=== PATIENT | female | born 1940 | race Caucasian/White ===

== ENCOUNTER 2017-05-01 16:17 | Inpatient (IN) | payer MEDICARE, OTHER ==
[2017-05-01] VITALS: BP 148/71
[~2017-05-01] VITALS: Ht 162.6 cm; Wt 63.9 kg
--- NOTE | ~2017-05-01 | HEMODYNAMI ---
PATIENT:ALICIA SRIVASTAVA MEDICAL RECORD: [id number] : 36 LOCATION:[place] [address] ADMISSION DATE: 05/01/17 Generatedon:05/04/20178:57 Patient name: ALICIA SRIVASTAVA Patient #: [id number] SSN: : 1940 Date of study: 05/04/2017 Page: Of Hemodynamic Procedure Report Patient Data Patient Demographics Procedure consent was obtained First Name: ALICIA Gender: Female Last Name: ATIF : 1940 Middle Initial: D Age: 76 year(s) Patient #: [id number] Race: Unknown Additional ID: [id number] Contact details [address]: [address] [place] [address] State: [place] City: [place] Zip code: [address] Admission Admission Data Admission Date: 05/01/2017 Admission Time: 23:36 Room #: [facility]5 Weight (lbs.): 136.69 Weight (kg.): 62 Procedure Procedure Types Cath Procedure Diagnostic Procedure PPM/ICD PPM Ventricular Implant Miscellaneous Procedures Moderate Sedation up to 30 minutes Procedure Description Procedure Date Procedure Date: 05/04/2017 Procedure Start Time: 8:23 Procedure Staff Name Function Jaron Sawyer MD Performing Physician Brady Yu RN Nurse Jennifer Luna RT Monitor Steven Ji RT Scrub Betty Martell RN Nurse Procedure Data Cath Procedure Fluoroscopy Diagnostic fluoroscopy Total fluoroscopy Time: 2.6 time: 2.6 min min Diagnostic fluoroscopy Total fluoroscopy dose: dose: 20.68 mGy 20.68 mGy Contrast Material Contrast Material Type Amount (ml) Visipaque 270 10 Estimated blood loss: 5 ml Procedure Complications No complications Procedure Medications Medication Administration Route Dosage 0.9% NaCl I.V. 100 ml/hr Oxygen NC 2 l/min Lidocaine 1% added to field 20 Ancef (1Gm/50ml NS) I.V.P.B 1 g Ancef Irrigation Topical 1 g (1gm/500ml NS) Versed I.V. 1 mg Versed I.V. 1 mg Fentanyl I.V. 50 mcg Lopressor I.V. 5 mg Lopressor I.V. 5 mg Hemodynamics Rest Heart Rate: 111 (bpm) Snapshots Pre Cath Intra NCS Post Cath Vital Signs Time Heart Resp SPO2 etCO2 NIBP (mmHg) Rhythm Pain Sedation Rate (ipm) (%) (mmHg) Status Level (bpm) 7:58:45 109 22 92 0 183/108(149) NSR 0 (11) 10(A) , No pain 8:03:16 97 24 90 29.2 175/122(152) NSR 0 (11) 10(A) , No pain 8:07:46 60 27 92 29.1 171/114(131) NSR 0 (11) 10(A) , No pain 8:12:18 102 12 93 29.9 169/113(152) NSR 0 (11) 10(A) , No pain 8:16:49 110 23 93 29.9 169/120(145) NSR 0 (11) 10(A) , No pain 8:21:15 76 25 93 28.4 177/122(141) NSR 0 (11) 10(A) , No pain 8:25:49 122 14 93 32.9 170/124(141) NSR 0 (11) 10(A) , No pain 8:30:16 83 19 93 36.7 177/110(145) NSR 0 (11) 10(A) , No pain 8:34:42 95 17 93 36.7 167/111(136) NSR 0 (11) 10(A) , No pain 8:39:08 75 17 95 34.4 153/113(130) NSR 0 (11) 10(A) , No pain 8:43:30 106 17 94 35.2 157/107(137) NSR 0 (11) 10(A) , No pain 8:47:55 90 17 94 34.4 157/103(142) NSR 0 (11) 10(A) , No pain 8:52:19 114 19 94 32.9 160/109(129) NSR 0 (11) 10(A) , No pain Medications Time Medication Route Dose Verified Delivered Reason Notes Effective ness by by 8:09:35 0.9% NaCl I.V. 100 Jaron Abreu used for ml/hr Digna Yu RN procedure 8:09:46 Oxygen NC 2 Jaron Buffie Per l/min Digna Yu RN physician 8:10:26 Lidocaine added 20ml Jaron Jaron for local 1% to vial Digna Sawyer MD anesthetic field x2 8:10:57 Ancef I.V.P.B 1 g Jaron Buffie Per (1Gm/50ml Digna Yu RN protocol NS) 8:11:18 Ancef Topical 1 g Jaron Jaron Per Irrigation Digna Sawyer MD physician (1gm/500ml NS) 8:19:36 Versed I.V. 1 mg Jaron Buffie for Digna Yu RN sedation 8:24:01 Versed I.V. 1 mg Jaron Buffie for Digna Yu RN sedation 8:24:07 Fentanyl I.V. 50 Jaron Buffie for mcg Digna Yu RN sedation 8:39:50 Lopressor I.V. 5 mg Jaron Buffie Per Digna major MD 8:48:04 Lopressor I.V. 5 mg Jaron Buffie Per Digna major MD Procedure Log Time Note 7:29:52 Patient Weight : 136.69 lbs 7:34:19 Brady Yu RN sent for patient. Start room use. 7:41:35 Time tracking: Regular hours 7:41:39 Plan of Care:Hemodynamics will remain stable., Cardiac rhythm will remain stable., Comfort level will be maintained., Respiratory function will remain adequate., Patient/ family verbilizes understanding of procedure., Procedure tolerated without complication., Recovers from procedure without complications.. 7:51:16 Patient received from PCU to CCL 3 Alert and oriented. Tansferred to table in Supine position. 7:51:17 Warm blankets applied, and joelle hugger turned on for patient comfort. 7:51:18 Correct patient and procedure confirmed by team. 7:51:19 Signed procedure consent form obtained from patient. 7:51:20 ECG and BP/O2 sat monitors applied to patient. 7:51:21 Full Disclosure recording started 7:57:24 Vital chart was started 7:57:28 Rhythm: atrial fibrillation 7:58:00 H&P Date Dictated: 05/02/2017 Within 30 days and on chart.. 7:58:02 Pre-procedure instructions explained to patient. 7:58:02 Pre-op teaching completed and patient verbalized understanding. 7:58:04 Family in patients room. 7:58:06 Patient NPO since Midnight. 7:58:08 Is the patient allergic to Iodine/contrast media? No. 7:58:11 Is patient on blood thinner?No 8:00:57 Patient diabetic? No. 8:01:06 Previous problem with sedation/anesthesia? No ? 8:01:07 Snore? Yes 8:01:08 Sleep apnea? No 8:01:09 Deviated septum? No 8:01:10 Opens mouth fully? Yes 8:01:11 Sticks out tongue? Yes 8:01:13 Airway obstruction? No ? 8:01:41 Dentures? No ? 8:01:47 Patient pain scale 0/10 ?. 8:01:56 IV patent on arrival in left hand with 0.9% NaCl at KVO. 8:02:16 IV started by Brady Yu RN inleft antecubital with a 20 gauge IV catheter with 0.9% NaCl at KVO. 8:02:27 Lab results completed and on chart. 8:02:33 Left chest area was prepped with chlora-prep and draped in sterile fashion 8:02:34 Alarms reviewed by R. N. 8:02:35 Sharps counted by scrub and verified by R.N. 8:02:40 Use device set NORRED PPM 8:02:53 Tegaderm 4 x 4 (1626W) opened to sterile field. 8:02:53 Stapler Skin 35W Proximate Plus (PMW35) opened to sterile field. 8:02:55 Cautery Tip Audit Spec opened to sterile field. 8:02:55 Cautery Pushbutton Pencil opened to sterile field. 8:02:56 2.0 Silk 685H opened to sterile field. 8:02:57 2-0 Vicryl Plus [id number] opened to sterile field. 8:03:04 Medtronic 4074-52 PPM Lead opened to sterile field. 8:07:06 MICROPUNCTURE 4FR Carl ([id number]) opened to sterile field. 8:09:35 0.9% NaCl 100 ml/hr I.V. was administered by Brady Yu RN; used for procedure; 8:09:46 Oxygen 2 l/min NC was administered by Brady Yu RN; Per physician; 8:10:01 Medtronic medical field representative Joe Kaur present for procedure. 8:10:14 Pre sharps counted by scrub and verified by RN: Sutures: 2 Sponges: 5 Stick needles: 2 Skin needles: 2 Blade: 1 Cautery: 1 8:10:16 Grounding pad site Right thigh. 8:10:18 Grounding pad site free from injury. 8:10:26 Lidocaine 1% 20ml vial x2 added to field was administered by Jaron Sawyer MD; for local anesthetic; 8:10:57 Ancef (1Gm/50ml NS) 1 g I.V.P.B was administered by Brady Yu RN; Per protocol; 8:11:18 Ancef Irrigation (1gm/500ml NS) 1 g Topical was administered by Jaron Sawyer MD; Per physician; 8:12:14 Final Timeout: patient, procedure, and site verified with staff and physician. All members of the team are in agreement. 8:12:19 Left chest site verified by team. 8:12:22 Physical assessment completed. ASA score P 2 - A patient with mild systemic disease as per Jaron Sawyer MD. 8:12:24 Sedation plan: IV Moderate Sedation Medication:Versed, Fentanyl 8:19:36 Versed 1 mg I.V. was administered by Brady Yu RN; for sedation; 8:23:45 Lidocaine 1% was administered to left subclavicular area by Jaron Sawyer MD . 8:23:47 Baseline sample Acquired. 8:24:01 Versed 1 mg I.V. was administered by Brady Yu RN; for sedation; 8:24:07 Fentanyl 50 mcg I.V. was administered by Brady Yu RN; for sedation; 8:26:51 Incision made to left subclavicular area. 8:27:29 Generator pocket made/opened. 8:31:43 Access obtained with 4Fr micropunture. 8:35:13 MICROPUNCTURE 4FR YABUY ([id number]) opened to sterile field. 8:35:14 MICROPUNCTURE 4FR YABUY ([id number]) opened to sterile field. 8:37:52 Left subclavian vein accessed with 7Fr Peel Away Sheath. 8:37:53 Ventricular lead inserted and advanced. 8:37:58 Peel-a-way sheath was split and removed. 8:38:01 Ventricular lead positioned. 8:38:32 Ventricular lead tested. 8:39:50 Lopressor 5 mg I.V. was administered by Brady Yu RN; Per physician; 8:41:31 Ventricular lead attachment was completed with 2-0 silk. 8:41:39 PPM Single was attached to lead(s) and inserted into pocket. 8:41:58 Medtronic Adapta PPM Single Generator ADSR01 opened to sterile field. 8:44:44 Subcutaneous closure was completed with 2-0 vicryl. 8:44:57 Skin closure was completed with 35mm Rey. 8:45:21 Parameters-- Generator: Mode: VVIR. Lower Rate: 100bpm. Upper Rate: N/Abpm. 8:46:06 Parameters--Ventricular P/R Wave: 28.7mV. Current: 0.4mA; Threshold: 0.5V; Impedence: 1564OHMS. 8:46:26 Contrast amount:Visipaque 270 10ml. 8:48:04 Lopressor 5 mg I.V. was administered by Brady Yu RN; Per physician; 8:48:40 Lt Chest incision was dressed with 4 x 4 and Tegaderm. 8:48:52 Procedure ended.(Physican Out) 8:49:31 Fluoroscopy time 02.60 minutes. 8:49:53 Fluoroscopy dose: 20.68 mGy 8:49:53 Flurop Dose total: 20.68 8:49:57 Sharps counted by scrub and verified by R.N. 8:50:13 Post sharps counted by scrub and verified by RN: Sutures: 2 Sponges: 5 Stick needles: 2 Skin needles: 2 Blade: 1 Cautery: 1 8:50:16 Insertion/operative site no bleeding no hematoma. 8:50:23 Post Chest area:stable, clean and dry 8:50:24 Post Procedure Pulses reassessed and unchanged 8:50:27 Post-procedure physical assessment completed. ASA score P 2 - A patient with mild systemic disease as per Jaron Sawyer MD. 8:50:31 Post procedure rhythm: unchanged. 8:50:34 Estimated blood loss: 5 ml 8:50:35 Post procedure instruction explained to patient.Patient verbalizes understanding. 8:50:35 Patient needs reinforcement of post procedure teaching. 8:50:42 Procedure type changed to Cath procedure, Diagnostic procedure, PPM/ICD, PPM Ventricular Implant, Miscellaneous Procedures, Moderate Sedation up to 30 minutes 8:50:47 Procedure Complication : No complications 8:50:49 See physician's report for complete and final results. 8:51:52 Procedure and supply charges have been captured, reviewed, submitted and are correct. 8:54:44 Vital chart was stopped 8:54:47 Report given to PCU. 8:54:54 Patient transfered to PCU with Bed. 8:55:03 End room use (Document Last) Device Usage Item Name Manufacture Quantity Catalog Hospital Part Current Minimal Lot# / Number Charge Number Stock Stock Serial# Code Tegaderm 4 x 3M 1 1626W [id number] 5 4 (1626W) Stapler Skin Unknown 1 PMW35 035833 842254 [id number] 5 35W Proximate Plus (PMW35) Cautery Tip Microtek 1 [id number] 904659 874137 [id number] 5 [employer] Cautery Microtek 1 [id number] 496993 36686 353582 5 [email or web address] Pencil 2.0 Silk 685H Ethicon 1 685H 239092 34833 266519 5 2-0 Vicryl Ethicon 1 KTZ673 579375 921549 993366 5 Plus [id number] Medtronic Medtronic 1 4074-52 298339 529113 5 SN 4074-52 PPM [id number] Lead Exp 2019-01-10 MICROPUNCTURE [facility] 3 [id number] 062328 049048 554497 5 4FR Cook ([id number]) Medtronic Medtronic 1 ADSR01 569232 309083 5 SN Adapta PPM [id number] Single Exp Generator 2018-08-09 ADSR01 Signature Audit [place] Stage Time Signature Unsigned Intra-Procedure 05/04/2017 Jennifer 8:57:46 AM Counts RT(R) Signatures Monitor : Jennifer Signature : Counts RT Date : Time : [facility] [address] [place] [address]
[2017-05-01 17:36] LABS: BASOPHILS 0.2 % (0-2); EOSINOPHILS 1.5 % (0-7); HEMATOCRIT 43.2 % (36.0-48.0); HEMOGLOBIN 14.7 g/dL (12-16); IMMATURE GRANULOCYTES 0.5 % (0-5); LYMPHOCYTES 27.2 % (15-50); MCH 30.2 pg (26.0-34.0); MCV 88.7 fL (80.0-100.0); MEAN PLATELET VOLUME 10.2 fL (7.4-10.4); MONOCYTES 6.9 % (2-11); NEUTROPHILS 63.7 % (40-80); PLATELET COUNT 134 10x3/uL (130-400); RBC 4.87 10x6/uL (4.00-5.40); WBC 12.5 10x3/uL (4.8-10.8)
[2017-05-01 17:55] LABS: INR 1.22 (0.85-1.17)
[2017-05-01 18:16] LABS: ALBUMIN 3.3 g/dL (3.4-5.0); ANION GAP 12.3 mmol/L (8-16); BILIRUBIN - TOTAL 0.41 mg/dL (0.2-1.3); CALCIUM 9.4 mg/dL (8.5-10.1); CARBON DIOXIDE 29.2 mmol/L (21.0-32.0); CREATININE - SERUM 0.8 mg/dL (0.6-1.3); POTASSIUM - SERUM 3.5 mmol/L (3.5-5.1); PROTEIN - SERUM 6.2 g/dL (6.4-8.2)
[2017-05-01 21:22] LABS: CKMB 1.1 U/L (0.0-3.6); MAGNESIUM - SERUM 1.7 mg/dL (1.8-2.4)
[2017-05-01 21:26] LABS: TROPONIN-I < 0.017 ng/mL (0.000-0.060)
[2017-05-01 22:56] LABS: APPEARANCE CLEAR (CLEAR); COLOR YELLOW (YELLOW)
[2017-05-01 22:57] LABS: BILIRUBIN NEGATIVE (NEGATIVE); GLUCOSE NEGATIVE (NEGATIVE); KETONE NEGATIVE (NEGATIVE); NITRITE NEGATIVE (NEGATIVE); PROTEIN NEGATIVE (NEGATIVE); UROBILINOGEN NORMAL (NORMAL)
[2017-05-01 22:58] LABS: BACTERIA FEW /hpf (NONE SEEN); RED CELLS - URINE OCC /hpf (0-5); WHITE CELLS - URINE 0-5 /hpf (0-5)
[2017-05-02] MEDS ORDERED: NICARDIPINE HCL30 MG PO (00:20)
[2017-05-02] MEDS ORDERED: TEMAZEPAM30 MG PO (00:21)
[2017-05-02] MEDS ORDERED: PROPAFENONE HC225 MG PO (00:21)
[2017-05-02] MEDS ORDERED: COZAAR50 MG PO (00:21)
[2017-05-02 00:46] VITALS: BMI 24.9
[2017-05-02] MEDS ORDERED: TOBREX5 ML LEFT EYE (01:08)
[2017-05-02] MEDS ORDERED: LOTEMAX 0.5% OPH5 ML LEFT EYE (01:09)
[2017-05-02 04:00] VITALS: BP 96/65
[2017-05-02 05:59] LABS: BASOPHILS 0.1 % (0-2); EOSINOPHILS 2.2 % (0-7); HEMATOCRIT 40.2 % (36.0-48.0); HEMOGLOBIN 13.7 g/dL (12-16); IMMATURE GRANULOCYTES 0.1 % (0-5); LYMPHOCYTES 29.2 % (15-50); MCH 30.4 pg (26.0-34.0); MCHC 34.1 g/dL (31.0-37.0); MCV 89.1 fL (80.0-100.0); MEAN PLATELET VOLUME 10.7 fL (7.4-10.4); NEUTROPHILS 61.4 % (40-80); RBC 4.51 10x6/uL (4.00-5.40)
[2017-05-02 06:08] LABS: PLATELET COUNT 297 10x3/uL (130-400)
[2017-05-02 06:16] VITALS: BP 138/67
[2017-05-02 06:35] LABS: CALC OSMOLALITY 279 mosm/kg (275-300); CALCIUM 8.9 mg/dL (8.5-10.1); CARBON DIOXIDE 28.2 mmol/L (21.0-32.0); CHLORIDE - SERUM 104 mmol/L (98-107); CKMB 0.6 U/L (0.0-3.6); CREATINE KINASE 27 UL (21-215); CREATININE - SERUM 0.9 mg/dL (0.6-1.3); GLUCOSE 112 mg/dL (74-106); SODIUM 141 mmol/L (136-145); THYROID STIMULATING HORMONE 1.13 uIU/mL (0.36-3.74); TROPONIN-I < 0.017 ng/mL (0.000-0.060); UREA NITROGEN 8 mg/dL (7-18); eGFR NON AFRICAN AMERICAN 64 mL/min (90-120)
[2017-05-02 07:41] VITALS: BP 126/72
--- NOTE | 2017-05-02 09:04 | NUR ---
RESTS IN BED WITH EYES CLOSED. CALL LIGHT IN REACH. WILL MONITOR NEEDS.
--- NOTE | 2017-05-02 09:40 | NUR ---
ASSESSMENT DONE. DEIES NEEDS.
--- NOTE | 2017-05-02 10:33 | NUR ---
RATIONALE FOR SCD'S EXPLAINED. REFUSED SCD'S
[2017-05-02 11:19] VITALS: BP 159/100
[2017-05-02 15:45] VITALS: BP 148/92
--- NOTE | 2017-05-02 17:34 | NUR ---
WITHOUT CHANGES OR DISTRESS NOTED AT THIS TIME. DENIES NEED.
[2017-05-02 20:23] VITALS: BP 132/80
--- NOTE | 2017-05-02 20:59 | NUR ---
HS MEDS GIVEN WITH FRESH ICE WATER, PT DENIES PAIN NEEDS.
--- NOTE | 2017-05-03 01:06 | NUR ---
PT IN BED RESTING QUIETLY. BREATHING EVEN AND UNLABORED. BED IN LOW POSITION, CALL LIGHT WITHIN REACH. WILL CTM.
[2017-05-03 01:50] VITALS: BP 163/97
--- NOTE | 2017-05-03 04:24 | NUR ---
RESTING WITH EYES CLOSED, RESPERATIONS EVEN, NO S/S DISTRESS NOTED.
[2017-05-03 05:01] LABS: BASOPHILS 0.1 % (0-2); EOSINOPHILS 1.8 % (0-7); HEMATOCRIT 38.6 % (36.0-48.0); HEMOGLOBIN 13.4 g/dL (12-16); IMMATURE GRANULOCYTES 0.3 % (0-5); LYMPHOCYTES 32.7 % (15-50); MCH 30.5 pg (26.0-34.0); MCHC 34.7 g/dL (31.0-37.0); MCV 87.9 fL (80.0-100.0); MEAN PLATELET VOLUME 10.1 fL (7.4-10.4); MONOCYTES 7.9 % (2-11); NEUTROPHILS 57.2 % (40-80); PLATELET COUNT 309 10x3/uL (130-400); RBC 4.39 10x6/uL (4.00-5.40); RDW 13.7 % (11.5-14.5); WBC 9.2 10x3/uL (4.8-10.8)
[2017-05-03 05:24] LABS: ANION GAP 6.2 mmol/L (8-16); CALCIUM 8.7 mg/dL (8.5-10.1); CARBON DIOXIDE 29.5 mmol/L (21.0-32.0); CREATININE - SERUM 0.8 mg/dL (0.6-1.3); MAGNESIUM - SERUM 1.4 mg/dL (1.8-2.4)
[2017-05-03 05:25] LABS: POTASSIUM - SERUM 2.7 mmol/L (3.5-5.1)
[2017-05-03 05:54] VITALS: BP 173/106
--- NOTE | 2017-05-03 06:00 | NUR ---
PAGE OUT TO HAVEN NAVARRO APN, YACHT BUILDER FOR DR GARCIA, TO REPORT A CRITICAL POTASSIUM LEVEL OF 2.7.
--- NOTE | 2017-05-03 06:10 | NUR ---
CONSENTS SIGNED FOR PACEMAKER PLACEMENT TO BE DONE TODAY.
--- NOTE | 2017-05-03 06:32 | NUR ---
POTASSIUM 40 MEQ GIVEN WITH SMALL SIPS OF WATER FOR POTASSIUM OF 2.7. WILL CONT TO MONITOR.
[2017-05-03 07:00] VITALS: BP 187/82
--- NOTE | 2017-05-03 07:11 | NUR ---
RECIEVED REPORT ONPATIENT, PATIENT IS ALERT AND ORIENTED AT THIS TIME. PATIENT HAS A L FA IV WITH NS INFUSING BY GRAVITY FOR PREOP. PATIENT IS UNCONTROLLED AFIB ON MONITOR WITH A RATE OF 134 AT THIS TIME. PATIENT DENIES ANY NEEDS AT THIS TIME. BED IS LOW AND LOCKED. CALL LIGHT IN REACH. PATIENT WAITING TO GO FOR PACEMAKER PLACEMENT. CPOC
--- NOTE | 2017-05-03 07:33 | NUR ---
SPOKE WITH DR GONZALEZ PATIENT IS NOT GOING FOR PACEMAKER TODAY, SHE IS GOING TO GO TOMORROW. PATIENT NOTIFIED. CPOC
--- NOTE | 2017-05-03 09:00 | NUR ---
MORNING MEDICTAION GIVEN, WAITING ON CARDENE TO BE BROUGHT UP FROM PHARMACY. PATIENT DENIES ANY NEEDS. CPOC
--- NOTE | 2017-05-03 09:43 | NUR ---
HAVE CALL PHARMACY TWICE, WAITING ON MEDICATION TO BE BROUGHT UP. CPOC
[2017-05-03 11:00] VITALS: BP 140/90
--- NOTE | 2017-05-03 12:00 | NUR ---
PATIENT SITTING UP IN BED EATING LUNCH. DENIES ANY NEEDS. CPOC
--- NOTE | 2017-05-03 12:13 | NUR ---
HAVE CALLED PHARMACY TWICE FOR THE FLUIDS. WAITING FOR THEM TO BE BROUGHT UP. CPOC
--- NOTE | 2017-05-03 14:00 | NUR ---
PATIENT RESTING AT THIS TIME, FAMILY AT BEDSIDE. PATIENT AROUSES TO VOICE, DENIES ANY NEEDS. CPOC
[2017-05-03 15:07] VITALS: BP 125/82
--- NOTE | 2017-05-03 17:13 | NUR ---
PATIENT EATING DINNER AT THIS TIME. DENIES ANY NEEDS. BED LOW AND LOCKED. CALL LIGHT IN REACH. CPOC
--- NOTE | 2017-05-03 18:16 | NUR ---
ROUNDS MADE, PATIENT NEEDS MET. DENIES ANY FURTHER NEEDS. BED LOW AND LOCKED. CALL LIGHT IN REACH. CPOC
--- NOTE | 2017-05-03 20:49 | NUR ---
IV TO LEFT ARM OUT, TIP INTACT. COVERED WITH 2X2 AND TAPE.
[2017-05-03 21:14] VITALS: BP 139/83
--- NOTE | 2017-05-03 22:15 | NUR ---
HS MEDS GIVEN WITH FRESH ICE WATER, IV RESITED TO LEFT HAND, 22 GAUGE, SECOND ATTEMPT, PT TOLERATED WELL.
[2017-05-04 01:16] VITALS: BP 139/72
--- NOTE | 2017-05-04 02:36 | NUR ---
RESTING WITH EYES CLOSED, RESPERATIONS EVEN, NO S/S DISTRESS NOTED.
--- NOTE | 2017-05-04 04:24 | NUR ---
CIVIL DRAFTSMAN AT BED SIDE TO OBTAIN VITALS.
[2017-05-04 05:39] VITALS: BP 126/79
[2017-05-04 06:32] LABS: BASOPHILS 0.2 % (0-2); HEMATOCRIT 40.1 % (36.0-48.0); HEMOGLOBIN 13.7 g/dL (12-16); IMMATURE GRANULOCYTES 0.3 % (0-5); LYMPHOCYTES 23.2 % (15-50); MCH 30.2 pg (26.0-34.0); MCHC 34.2 g/dL (31.0-37.0); MCV 88.3 fL (80.0-100.0); MONOCYTES 9.2 % (2-11); NEUTROPHILS 66.1 % (40-80); PLATELET COUNT 312 10x3/uL (130-400); RBC 4.54 10x6/uL (4.00-5.40); RDW 13.9 % (11.5-14.5); WBC 9.6 10x3/uL (4.8-10.8)
[2017-05-04 06:36] LABS: CALC OSMOLALITY 272 mosm/kg (275-300); CHLORIDE - SERUM 99 mmol/L (98-107); CREATININE - SERUM 0.7 mg/dL (0.6-1.3); GLUCOSE 124 mg/dL (74-106); MAGNESIUM - SERUM 1.6 mg/dL (1.8-2.4); PHOSPHOROUS 2.7 mg/dL (2.5-4.9); SODIUM 137 mmol/L (136-145); UREA NITROGEN 7 mg/dL (7-18); eGFR NON AFRICAN AMERICAN 86 mL/min (90-120)
[2017-05-04 06:43] LABS: POTASSIUM - SERUM 3.2 mmol/L (3.5-5.1)
--- NOTE | 2017-05-04 07:30 | NUR ---
ASSESSMENT COMPLETED. TELEMERTY SHOWS CAF AT 100 LEFT WRIST WITH NS WITH 40 K AT 50. RIGHT EYE IS BLACK. PRE OPED FOR ELECTRODE CLEANER
[2017-05-04 07:58] VITALS: BP 133/79
--- NOTE | 2017-05-04 08:44 | NUR ---
IN DIE STAMPER AT THIS TIME FOR PACEMAKER. WILL CONT. PLAN OF CARE.
[2017-05-04 12:05] VITALS: BP 142/94
--- NOTE | 2017-05-04 12:44 | NUR ---
BACK FROM SYSTEM TECHNOLOGIST. TELEMERTY SHOWS CAF. V/S STABLE. SLING TO LEFT ARM. DRSG TO RIGHT SHOULDER DRY AND INTACT. WILL MONITOR
[2017-05-04 15:45] VITALS: BP 140/88
--- NOTE | 2017-05-04 18:34 | NUR ---
LYING QUIETLY. SLING TO LEFT ARM. DRSG DRY AND INTACT. SR UP WITH CALL LIGHT IN REACH
--- NOTE | 2017-05-04 19:38 | NUR ---
PT RESTING IN BED LAYING ON RIGHT SIDE. PT ASKS TO TAKE OUT IV. I ASKED PT TO LEAVE IN UNTIL SHE IS D/C'D. PT AGREED. PT DENIES ANY NEEDS. NO S/S OF DISTRESS. BED LOW AND CALL LIGHT IN REACH. WILL CPOC
[2017-05-04 20:21] VITALS: BP 151/79
--- NOTE | 2017-05-05 00:10 | NUR ---
PT ASLEEP. RESPIRATIONS EVEN AND UNLABORED. AROUSES TO VERBAL STIMULI. UP TO RESTROOM WITH X1 ASSIST. PT BACK TO BED. REPOSTIONED. DENIES ANY NEEDS. NO S/S OF DISTRESS. WILL CPOC
[2017-05-05 00:41] VITALS: BP 121/67
[2017-05-05 04:29] VITALS: BP 148/90
[2017-05-05 05:32] LABS: BASOPHILS 0.2 % (0-2); HEMATOCRIT 39.4 % (36.0-48.0); HEMOGLOBIN 13.7 g/dL (12-16); IMMATURE GRANULOCYTES 0.2 % (0-5); LYMPHOCYTES 34.4 % (15-50); MCH 30.7 pg (26.0-34.0); MCHC 34.8 g/dL (31.0-37.0); MCV 88.3 fL (80.0-100.0); MONOCYTES 9.4 % (2-11); NEUTROPHILS 54.8 % (40-80); PLATELET COUNT 311 10x3/uL (130-400); RBC 4.46 10x6/uL (4.00-5.40); RDW 13.6 % (11.5-14.5); WBC 9.3 10x3/uL (4.8-10.8)
[2017-05-05 05:44] LABS: CALC OSMOLALITY 263 mosm/kg (275-300); CALCIUM 9.3 mg/dL (8.5-10.1); CARBON DIOXIDE 26.9 mmol/L (21.0-32.0); CHLORIDE - SERUM 96 mmol/L (98-107); CREATININE - SERUM 0.7 mg/dL (0.6-1.3); GLUCOSE 100 mg/dL (74-106); MAGNESIUM - SERUM 1.4 mg/dL (1.8-2.4); PHOSPHOROUS 3.3 mg/dL (2.5-4.9); POTASSIUM - SERUM 3.1 mmol/L (3.5-5.1); SODIUM 133 mmol/L (136-145); UREA NITROGEN 8 mg/dL (7-18); eGFR NON AFRICAN AMERICAN 86 mL/min (90-120)
--- NOTE | 2017-05-05 07:30 | NUR ---
RESTING QUIELTY RESP UNLABORED NAD NOTED
--- NOTE | 2017-05-05 07:35 | NUR ---
ASSESSMENT COMPLETED. PACER TO LEFT CHEST WITH WITH SLING ON. LEFT WRIST SL. ALERT AND ORIENTED. RIGHT EYE BLACK AND LEFT EYE BRO. TELEMERTY SHOWS FLUTTER 95. WILL MONITOR
[2017-05-05 08:43] VITALS: BP 165/78
[2017-05-05 11:04] VITALS: Ht 162.6 cm; Wt 63.9 kg
[2017-05-05 13:05] VITALS: BP 163/73
[2017-05-05 16:45] VITALS: BP 167/78
--- NOTE | 2017-05-05 19:25 | NUR ---
LYING QUIETLY. PACER TO LEFT SIDE WITH SLING IN USE. WILL MONITOR
--- NOTE | 2017-05-05 19:26 | NUR ---
PT C/O CONSTIPATION. STATES IT HAS BEEN 3-4 DAYS. PT DENIES ANY OTHER NEEDS, NO S/S OF DISTRESS. BED LOW AND CALL LIGHT IN REACH. TOOK OF SLING FOR LEFT SHOULDER PACEMAKER. PT VERBALIZED UNDERSTANDING OF NOT BEARING WEIGHT ON LEFT ARM. PT DOING RANGE OF MOTION ON LEFT SHOULDER. WILL CPOC
[2017-05-05 20:19] VITALS: BP 154/88
[2017-05-06 00:16] VITALS: BP 123/74
[2017-05-06 04:55] LABS: BASOPHILS 0.1 % (0-2); EOSINOPHILS 1.5 % (0-7); HEMATOCRIT 39.4 % (36.0-48.0); HEMOGLOBIN 13.7 g/dL (12-16); IMMATURE GRANULOCYTES 0.4 % (0-5); MCH 30.5 pg (26.0-34.0); MCHC 34.8 g/dL (31.0-37.0); MCV 87.8 fL (80.0-100.0); MEAN PLATELET VOLUME 10.3 fL (7.4-10.4); MONOCYTES 11.9 % (2-11); NEUTROPHILS 52.1 % (40-80); PLATELET COUNT 313 10x3/uL (130-400); RBC 4.49 10x6/uL (4.00-5.40); RDW 13.5 % (11.5-14.5); WBC 9.9 10x3/uL (4.8-10.8)
[2017-05-06 05:15] LABS: ANION GAP 11.9 mmol/L (8-16); CALCIUM 9.7 mg/dL (8.5-10.1); CARBON DIOXIDE 28.5 mmol/L (21.0-32.0); CREATININE - SERUM 0.8 mg/dL (0.6-1.3); MAGNESIUM - SERUM 1.9 mg/dL (1.8-2.4); PHOSPHOROUS 3.7 mg/dL (2.5-4.9); POTASSIUM - SERUM 3.4 mmol/L (3.5-5.1)
[2017-05-06 05:31] VITALS: BP 131/86
--- NOTE | 2017-05-06 07:20 | NUR ---
ASSESSMENT DONE. DENIES NEEDS.
[2017-05-06 08:09] VITALS: BP 146/88
--- NOTE | 2017-05-06 10:55 | NUR ---
STUDENT SUCCESS ADVISOR AT ASSISTING WITH BATH. WILL CONT. PLAN OF CARE.
[2017-05-06] MEDS ORDERED: KEFLEX500 MG PO (11:56)
[2017-05-06] MEDS ORDERED: CARDIZEM30 MG PO (11:57)
[2017-05-06] MEDS ORDERED: METOPROLOL TART50 MG PO (11:57)
[2017-05-06] MEDS ORDERED: K-DUR20 MEQ PO (12:01)
[2017-05-06 12:02] VITALS: BP 129/72
--- NOTE | 2017-05-06 15:56 | NUR ---
DC GIVEN TO PT AND DAUGHTER
--- NOTE | 2017-05-06 16:13 | NUR ---
DC HOME PER PERSONAL CAR
[2017-05-12 08:17] LABS: ALDOSTERONE 11.9 ng/dL (0.0-30.0)
[2017-05-12 11:14] LABS: RENIN ACTIVITY - PLASMA 0.194 ng/mL/hr (0.167-5.380)
--- NOTE | 2017-05-13 11:18 | EC ---
PATIENT:ALICIA SRIVASTAVA DATE OF SERVICE: 05/01/17 SEX: F MEDICAL RECORD: [id number] DATE OF : 36 LOCATION:[address] AGE OF PATIENT: 76 ADMISSION DATE: 05/01/17 REFERRING PHYSICIAN: INTERPRETING PHYSICIAN: AMAIRANI SAWYER MD ECHOCARDIOGRAM REPORT ECHO CHARGES 4 ECHO COMPLETE CLINICAL DIAGNOSIS: WEAKNESS/SYNCOPE HX CAD/STENTS/AFIB/HTN ECHOCARDIOGRAPHIC MEASUREMENTS (adult normal given) AC root (d.<3.7cm) 2.7 cm LV Septum d (<1.2 cm> 1.5 cm Valve Excursion 1.4 cm LV Septum (systole) 1.8 cm Left Atria (s.<4.0cm> 3.3 cm LVPW d(<1.2cm) 1.5 cm RV (d.<2.3cm) 3.3 cm LVPW (sytole) 2.3 cm LV diastole(<5.6CM) 4.7 cm MV E-F(>70mm/sec) cm LV systole 2.7 cm LVOT Diameter 1.7 cm MV exc.(>10mm) 1.8 cm Est.ejection fraction (50-75%) % Pericardial Effusion N DOPPLER: LVIT cm/sec A 122 cm/sec E 33.0 cm/sec LA cm/sec RVSP 33 mmHg LVOT 78 cm/sec AOP1/2T m/s Asc. Ao 116 cm/sec RVOT 80 cm/sec RA cm/sec PA 108 cm/sec AV Gradient Peak 5.41 mmHg AV Mean 3.18 mmHg AV Area 1.4 cm MV Gradient Peak 6.63 mmHg MV Mean 3.51 mmHg MV Area cm COMMENTS: Dumpster Operator: Mina KIM Forensic Artist: Galdino Sawyer TAPE# PACS DATE OF SERVICE: 05/02/2017 PROCEDURE: Transthoracic echocardiogram. FINDINGS: 1. Left ventricle shows mild concentric left ventricular hypertrophy. No evidence of regional wall motion abnormalities. Endocardium is difficult to visualize. Inflow characteristics are consistent with diastolic abnormalities. 2. The right ventricle is mildly dilated. 3. The left atrium is mildly dilated. ECHOCARDIOGRAM REPORT [id number] ALICIA SRIVASTAVA 4. The aortic valve is shown to have normal structure and normal function, not well visualized. 5. The mitral valve again is not well visualized, has [id number] mitral regurgitation. 6. The tricuspid valve has mild tricuspid regurgitation with right ventricular systolic pressures of 33 mmHg. 7. The pericardium is normal. 8. The pulmonic valve is grossly normal. 9. The right atrium and right ventricle are both mildly dilated. TRANSINT:[id number] Voice Confirmation ID: [id number] DOCUMENT ID: [id number] 05/11/2017 Edited to correct date of service, dm. AMAIRANI SAWYER MD at 1118 CC: [id number] DICTATION DATE: 05/04/17 0743 ADJUSTER PIANO ACTION: 05/04/17 1004 DIS IN 05/06/17 [facility] [address] [place] [address]
== END 2017-05-06 16:14 | disposition home or self-care (01) | DRG 244 ==
LOC: D.ER 16:17 → D.M2 23:36
PROVIDERS: Family Medicine; Internal Medicine Cardiovascular Disease; Internal Medicine Nephrology; Physician Assistant; ADMIT Internal Medicine Nephrology
PROC: 02HK3JZ Insertion of Pacemaker Lead into Right Ventricle, Percutaneous Approach (ICD-10-PCS; 2017-05-04)
PROC: 0JH604Z Insertion of Pacemaker, Single Chamber into Chest Subcutaneous Tissue and Fascia, Open Approach (ICD-10-PCS; principal; 2017-05-04 07:34)
DX: I48.91 Unspecified atrial fibrillation (principal); I10 Essential (primary) hypertension; I95.9 Hypotension, unspecified; E87.6 Hypokalemia; H40.9 Unspecified glaucoma; G47.00 Insomnia, unspecified; Z72.0 Tobacco use

== ENCOUNTER → 2017-08-21 13:09 | Outpatient (CLI) | payer MEDICARE, OTHER ==
[2017-05-05 11:04] VITALS: BMI 23.8
[~2017-08-21 13:09] MED LIST: CARDIZEM30 MG PO; COZAAR50 MG PO; ELIQUIS2.5 MG PO; K-DUR20 MEQ PO; KEFLEX500 MG PO; LANOXIN125 MCG PO; LOTEMAX 0.5% OPH5 ML LEFT EYE; METOPROLOL TART50 MG PO; NICARDIPINE HCL30 MG PO; POTASSIUM20 MEQ/11 PO; PROPAFENONE HC225 MG PO; TEMAZEPAM30 MG PO; TOBREX5 ML LEFT EYE; TOPROL XL100 MG PO
== END | disposition home or self-care (01) ==
LOC: D.CT 13:09 → D.MRI 13:30
DX: R42 Dizziness and giddiness (principal)

== ENCOUNTER 2017-10-20 13:01 | Inpatient (IN) | payer MEDICARE, OTHER ==
[~2017-10-20] VITALS: Ht 162.6 cm; Wt 56.5 kg
[~2017-10-20 13:01] MED LIST changes: -ELIQUIS2.5 MG PO; -LANOXIN125 MCG PO; -POTASSIUM20 MEQ/11 PO; -TOPROL XL100 MG PO
[2017-10-20 15:01] LABS: ALBUMIN 3.2 g/dL (3.4-5.0); BILIRUBIN - TOTAL 0.62 mg/dL (0.2-1.3); CALCIUM 10.1 mg/dL (8.5-10.1); CARBON DIOXIDE 32.8 mmol/L (21.0-32.0); CREATININE - SERUM 0.9 mg/dL (0.6-1.3); POTASSIUM - SERUM 3.8 mmol/L (3.5-5.1); PROTEIN - SERUM 7.5 g/dL (6.4-8.2)
[2017-10-20 15:12] LABS: BASOPHILS 0.2 % (0-2); EOSINOPHILS 0.6 % (0-7); HEMOGLOBIN 14.9 g/dL (12-16); IMMATURE GRANULOCYTES 0.5 % (0-5); LYMPHOCYTES 21.2 % (15-50); MCH 29.9 pg (26.0-34.0); MCHC 34.7 g/dL (31.0-37.0); MCV 86.3 fL (80.0-100.0); MEAN PLATELET VOLUME 10.6 fL (7.4-10.4); MONOCYTES 6.5 % (2-11); PLATELET COUNT 290 10x3/uL (130-400); RBC 4.98 10x6/uL (4.00-5.40); RDW 14.1 % (11.5-14.5); WBC 10.5 10x3/uL (4.8-10.8)
[2017-10-20 15:41] LABS: APPEARANCE CLEAR (CLEAR); BILIRUBIN NEGATIVE (NEGATIVE); COLOR YELLOW (YELLOW); GLUCOSE NEGATIVE (NEGATIVE); KETONE NEGATIVE (NEGATIVE); NITRITE NEGATIVE (NEGATIVE); PROTEIN TRACE mg/dL (NEGATIVE); SPECIFIC GRAVITY 1.005 (1.005-1.020); UROBILINOGEN NORMAL (NORMAL)
[2017-10-20 15:42] LABS: BACTERIA FEW /hpf (NONE SEEN); EPITHELIAL CELLS 0-5 /hpf (0-5); WHITE CELLS - URINE 0-5 /hpf (0-5)
[2017-10-20 16:00] VITALS: BP 161/90
[2017-10-20 18:00] VITALS: BP 171/94
[2017-10-20 22:02] VITALS: BP 161/82
[2017-10-20] MEDS ORDERED: TOPROL XL100 MG PO (22:55)
[2017-10-20] MEDS ORDERED: POTASSIUM20 MEQ/11 PO (22:55)
[2017-10-20] MEDS ORDERED: ELIQUIS2.5 MG PO (22:55)
[2017-10-20] MEDS ORDERED: LANOXIN125 MCG PO (22:55)
[2017-10-21] VITALS (10 sets, daily range): BP systolic 146–189; BP diastolic 75–97; BMI 22.3
[2017-10-21 05:23] LABS: BASOPHILS 0.2 % (0-2); EOSINOPHILS 1.9 % (0-7); HEMATOCRIT 40.2 % (36.0-48.0); HEMOGLOBIN 13.8 g/dL (12-16); IMMATURE GRANULOCYTES 0.5 % (0-5); LYMPHOCYTES 30.1 % (15-50); MCH 29.7 pg (26.0-34.0); MCHC 34.3 g/dL (31.0-37.0); MCV 86.6 fL (80.0-100.0); MONOCYTES 7.7 % (2-11); NEUTROPHILS 59.6 % (40-80); PLATELET COUNT 291 10x3/uL (130-400); RBC 4.64 10x6/uL (4.00-5.40); WBC 8.2 10x3/uL (4.8-10.8)
[2017-10-21 05:35] LABS: ALBUMIN 2.9 g/dL (3.4-5.0); ALKALINE PHOSPHATASE 80 U/L (46-116); ALT (SGPT) 23 U/L (10-68); CALC OSMOLALITY 284 mosm/kg (275-300); CALCIUM 9.4 mg/dL (8.5-10.1); CARBON DIOXIDE 31.4 mmol/L (21.0-32.0); CHLORIDE - SERUM 102 mmol/L (98-107); CREATININE - SERUM 0.7 mg/dL (0.6-1.3); GLUCOSE 114 mg/dL (74-106); PROTEIN - SERUM 6.5 g/dL (6.4-8.2); SODIUM 142 mmol/L (136-145); UREA NITROGEN 14 mg/dL (7-18); eGFR NON AFRICAN AMERICAN 85 mL/min (90-120)
[2017-10-21 05:37] LABS: POTASSIUM - SERUM 2.8 mmol/L (3.5-5.1)
[2017-10-21 12:00] LABS: DIGOXIN 0.97 ng/mL (0.90-2.00); MAGNESIUM - SERUM 1.8 mg/dL (1.8-2.4); T4 THYROXIN - FREE 1.36 ng/dL (0.76-1.46); THYROID STIMULATING HORMONE 1.55 uIU/mL (0.36-3.74)
[2017-10-22 01:43] VITALS: BP 191/107
[2017-10-22 05:31] LABS: BASOPHILS 0.2 % (0-2); HEMATOCRIT 38.9 % (36.0-48.0); HEMOGLOBIN 13.4 g/dL (12-16); IMMATURE GRANULOCYTES 0.4 % (0-5); MCH 29.8 pg (26.0-34.0); MCHC 34.4 g/dL (31.0-37.0); MCV 86.6 fL (80.0-100.0); MEAN PLATELET VOLUME 9.8 fL (7.4-10.4); MONOCYTES 7.6 % (2-11); NEUTROPHILS 59.8 % (40-80); PLATELET COUNT 313 10x3/uL (130-400); RBC 4.49 10x6/uL (4.00-5.40); RDW 13.7 % (11.5-14.5); WBC 10.2 10x3/uL (4.8-10.8)
[2017-10-22 05:38] VITALS: BP 169/86
[2017-10-22 05:47] LABS: CALC OSMOLALITY 281 mosm/kg (275-300); CALCIUM 9.3 mg/dL (8.5-10.1); CARBON DIOXIDE 31.2 mmol/L (21.0-32.0); CHLORIDE - SERUM 101 mmol/L (98-107); CREATININE - SERUM 0.7 mg/dL (0.6-1.3); GLUCOSE 141 mg/dL (74-106); POTASSIUM - SERUM 3.3 mmol/L (3.5-5.1); SODIUM 140 mmol/L (136-145); UREA NITROGEN 15 mg/dL (7-18); eGFR NON AFRICAN AMERICAN 85 mL/min (90-120)
[2017-10-22 08:42] VITALS: BP 171/78
[2017-10-22 12:15] VITALS: BP 174/104
[2017-10-22 15:41] VITALS: BP 155/69
[2017-10-22 21:40] VITALS: BP 150/74
[2017-10-23] VITALS (8 sets, daily range): BP systolic 133–180; BP diastolic 63–93; Ht 162.6 cm; Wt 56.5 kg
[2017-10-23 06:11] LABS: BASOPHILS 0.2 % (0-2); EOSINOPHILS 1.3 % (0-7); HEMATOCRIT 39.2 % (36.0-48.0); HEMOGLOBIN 13.1 g/dL (12-16); IMMATURE GRANULOCYTES 0.5 % (0-5); LYMPHOCYTES 31.2 % (15-50); MCH 29.1 pg (26.0-34.0); MCHC 33.4 g/dL (31.0-37.0); MCV 87.1 fL (80.0-100.0); MEAN PLATELET VOLUME 9.4 fL (7.4-10.4); MONOCYTES 6.7 % (2-11); NEUTROPHILS 60.1 % (40-80); PLATELET COUNT 298 10x3/uL (130-400); WBC 11.3 10x3/uL (4.8-10.8)
[2017-10-23 06:46] LABS: CALC OSMOLALITY 279 mosm/kg (275-300); CHLORIDE - SERUM 104 mmol/L (98-107); CREATININE - SERUM 0.7 mg/dL (0.6-1.3); GLUCOSE 127 mg/dL (74-106); SODIUM 139 mmol/L (136-145); UREA NITROGEN 13 mg/dL (7-18); eGFR NON AFRICAN AMERICAN 85 mL/min (90-120)
[2017-10-24] VITALS: BP 129/57
[2017-10-24 04:00] VITALS: BP 157/79
[2017-10-24 05:53] LABS: BASOPHILS 0.2 % (0-2); EOSINOPHILS 0.8 % (0-7); IMMATURE GRANULOCYTES 0.6 % (0-5); LYMPHOCYTES 30.7 % (15-50); MCH 29.3 pg (26.0-34.0); MCHC 33.3 g/dL (31.0-37.0); MCV 87.8 fL (80.0-100.0); MEAN PLATELET VOLUME 10.2 fL (7.4-10.4); MONOCYTES 5.4 % (2-11); NEUTROPHILS 62.3 % (40-80); PLATELET COUNT 330 10x3/uL (130-400); RBC 4.44 10x6/uL (4.00-5.40); RDW 14.1 % (11.5-14.5)
[2017-10-24 05:54] LABS: CALC OSMOLALITY 282 mosm/kg (275-300); CALCIUM 8.9 mg/dL (8.5-10.1); CARBON DIOXIDE 29.3 mmol/L (21.0-32.0); CHLORIDE - SERUM 103 mmol/L (98-107); CREATININE - SERUM 0.7 mg/dL (0.6-1.3); GLUCOSE 131 mg/dL (74-106); POTASSIUM - SERUM 3.6 mmol/L (3.5-5.1); SODIUM 141 mmol/L (136-145); UREA NITROGEN 13 mg/dL (7-18); eGFR NON AFRICAN AMERICAN 85 mL/min (90-120)
[2017-10-24 08:49] VITALS: BP 161/86
[2017-10-24 11:56] VITALS: BP 149/75
[2017-10-24 15:57] VITALS: BP 205/98
[2017-10-24 20:09] VITALS: BP 118/54
[2017-10-25 00:09] VITALS: BP 167/88
[2017-10-25 05:08] VITALS: BP 202/104
[2017-10-25 05:53] LABS: BASOPHILS 0.1 % (0-2); EOSINOPHILS 0.4 % (0-7); HEMATOCRIT 37.4 % (36.0-48.0); HEMOGLOBIN 12.7 g/dL (12-16); IMMATURE GRANULOCYTES 0.3 % (0-5); LYMPHOCYTES 22.8 % (15-50); MCH 29.1 pg (26.0-34.0); MEAN PLATELET VOLUME 9.9 fL (7.4-10.4); MONOCYTES 6.3 % (2-11); NEUTROPHILS 70.1 % (40-80); PLATELET COUNT 360 10x3/uL (130-400); RBC 4.36 10x6/uL (4.00-5.40); RDW 13.7 % (11.5-14.5); WBC 14.7 10x3/uL (4.8-10.8)
[2017-10-25 06:10] LABS: CALC OSMOLALITY 269 mosm/kg (275-300); CALCIUM 8.9 mg/dL (8.5-10.1); CARBON DIOXIDE 29.4 mmol/L (21.0-32.0); CHLORIDE - SERUM 96 mmol/L (98-107); CREATININE - SERUM 0.6 mg/dL (0.6-1.3); GLUCOSE 112 mg/dL (74-106); POTASSIUM - SERUM 3.3 mmol/L (3.5-5.1); SODIUM 135 mmol/L (136-145); UREA NITROGEN 10 mg/dL (7-18); eGFR NON AFRICAN AMERICAN > 90 mL/min (90-120)
[2017-10-25 06:12] LABS: MCV 85.8 fL (80.0-100.0)
[2017-10-25 07:53] VITALS: BP 154/79
[2017-10-25 11:52] VITALS: BP 143/67
[2017-10-25] MEDS ORDERED: CATAPRES0.1 MG PO (14:26)
[2017-10-25] MEDS ORDERED: CARDIZEM LA240 MG PO (15:09)
== END 2017-10-25 16:48 | disposition home or self-care (01) | DRG 310 ==
LOC: D.ER 13:01 → D.M2 19:30 → OBSVTIME 19:30 → D.M2 10-21 15:02
PROVIDERS: Family Medicine; Internal Medicine Nephrology
DX: I48.0 Paroxysmal atrial fibrillation (principal); I10 Essential (primary) hypertension; F32.9 Major depressive disorder, single episode, unspecified; R51 Headache; Z95.0 Presence of cardiac pacemaker; K21.9 Gastro-esophageal reflux disease without esophagitis; E87.6 Hypokalemia; E83.42 Hypomagnesemia; Z86.73 Personal history of transient ischemic attack (TIA), and cerebral infarction without residual deficits; Z72.0 Tobacco use

== ENCOUNTER 2017-10-28 20:26 | Inpatient (IN) | payer MEDICARE, OTHER ==
[~2017-10-28] VITALS: Ht 162.6 cm; Wt 59.5 kg
[~2017-10-28 20:26] MED LIST changes: +CARDIZEM LA240 MG PO; +CATAPRES0.1 MG PO; +ELIQUIS2.5 MG PO; +LANOXIN125 MCG PO; +POTASSIUM20 MEQ/11 PO; +TOPROL XL100 MG PO
[2017-10-28 21:00] VITALS: BP 186/94
[2017-10-28 21:52] LABS: APPEARANCE CLEAR (CLEAR); BILIRUBIN NEGATIVE (NEGATIVE); COLOR STRAW (YELLOW); GLUCOSE NEGATIVE (NEGATIVE); KETONE NEGATIVE (NEGATIVE); NITRITE NEGATIVE (NEGATIVE); PROTEIN TRACE mg/dL (NEGATIVE); UROBILINOGEN NORMAL (NORMAL)
[2017-10-28 22:15] VITALS: BP 194/88
[2017-10-28 22:23] LABS: BASOPHILS 0.1 % (0-2); EOSINOPHILS 0.1 % (0-7); HEMATOCRIT 37.6 % (36.0-48.0); IMMATURE GRANULOCYTES 0.5 % (0-5); LYMPHOCYTES 5.9 % (15-50); MCHC 34.6 g/dL (31.0-37.0); MCV 86.6 fL (80.0-100.0); MEAN PLATELET VOLUME 9.4 fL (7.4-10.4); MONOCYTES 3.8 % (2-11); NEUTROPHILS 89.6 % (40-80); PLATELET COUNT 392 10x3/uL (130-400); RBC 4.34 10x6/uL (4.00-5.40); RDW 14.2 % (11.5-14.5); WBC 16.4 10x3/uL (4.8-10.8)
[2017-10-28 22:36] LABS: ALBUMIN 3.2 g/dL (3.4-5.0); BILIRUBIN - TOTAL 0.61 mg/dL (0.2-1.3); CALCIUM 9.1 mg/dL (8.5-10.1); CARBON DIOXIDE 26.7 mmol/L (21.0-32.0); CREATININE - SERUM 0.8 mg/dL (0.6-1.3); POTASSIUM - SERUM 3.7 mmol/L (3.5-5.1); PROTEIN - SERUM 7.1 g/dL (6.4-8.2)
[2017-10-28 23:21] VITALS: BP 151/117
[2017-10-29 01:40] VITALS: BP 180/88; BMI 21.5
[2017-10-29 04:30] VITALS: BP 193/93
[2017-10-29 06:06] LABS: BASOPHILS 0.1 % (0-2); EOSINOPHILS 0 % (0-7); HEMATOCRIT 34.6 % (36.0-48.0); HEMOGLOBIN 11.7 g/dL (12-16); IMMATURE GRANULOCYTES 0.8 % (0-5); LYMPHOCYTES 8.4 % (15-50); MCH 29.1 pg (26.0-34.0); MCHC 33.8 g/dL (31.0-37.0); MCV 86.1 fL (80.0-100.0); MEAN PLATELET VOLUME 9.2 fL (7.4-10.4); MONOCYTES 4.3 % (2-11); NEUTROPHILS 86.4 % (40-80); PLATELET COUNT 336 10x3/uL (130-400); RBC 4.02 10x6/uL (4.00-5.40); RDW 14.1 % (11.5-14.5); WBC 13.6 10x3/uL (4.8-10.8)
[2017-10-29 07:00] LABS: CALCIUM 7.5 mg/dL (8.5-10.1); CARBON DIOXIDE 23.3 mmol/L (21.0-32.0); CHLORIDE - SERUM 101 mmol/L (98-107); CREATININE - SERUM 0.7 mg/dL (0.6-1.3); SODIUM 136 mmol/L (136-145); eGFR NON AFRICAN AMERICAN 85 mL/min (90-120)
[2017-10-29 07:01] LABS: CALC OSMOLALITY 272 mosm/kg (275-300); GLUCOSE 149 mg/dL (74-106); POTASSIUM - SERUM 2.9 mmol/L (3.5-5.1); UREA NITROGEN 8 mg/dL (7-18)
[2017-10-29 07:49] VITALS: BP 169/87
[2017-10-29 11:50] VITALS: BP 185/88
[2017-10-29 15:56] VITALS: BP 163/81
[2017-10-29 20:30] VITALS: BP 178/108
[2017-10-30 00:30] VITALS: BP 174/82
[2017-10-30 04:30] VITALS: BP 185/102
[2017-10-30 06:47] LABS: BASOPHILS 0.1 % (0-2); EOSINOPHILS 0.6 % (0-7); HEMATOCRIT 36.9 % (36.0-48.0); HEMOGLOBIN 12.5 g/dL (12-16); IMMATURE GRANULOCYTES 0.5 % (0-5); LYMPHOCYTES 19.1 % (15-50); MCH 29.7 pg (26.0-34.0); MCHC 33.9 g/dL (31.0-37.0); MCV 87.6 fL (80.0-100.0); MEAN PLATELET VOLUME 9.8 fL (7.4-10.4); MONOCYTES 7.2 % (2-11); NEUTROPHILS 72.5 % (40-80); PLATELET COUNT 394 10x3/uL (130-400); RBC 4.21 10x6/uL (4.00-5.40); RDW 14.5 % (11.5-14.5); WBC 14.6 10x3/uL (4.8-10.8)
[2017-10-30 07:08] LABS: ALBUMIN 2.8 g/dL (3.4-5.0); ALKALINE PHOSPHATASE 65 U/L (46-116); ALT (SGPT) 39 U/L (10-68); BILIRUBIN - TOTAL 0.43 mg/dL (0.2-1.3); CALC OSMOLALITY 274 mosm/kg (275-300); CALCIUM 8.6 mg/dL (8.5-10.1); CARBON DIOXIDE 28.3 mmol/L (21.0-32.0); CHLORIDE - SERUM 101 mmol/L (98-107); CREATININE - SERUM 0.7 mg/dL (0.6-1.3); GLUCOSE 107 mg/dL (74-106); POTASSIUM - SERUM 3.3 mmol/L (3.5-5.1); PROTEIN - SERUM 6.6 g/dL (6.4-8.2); SODIUM 138 mmol/L (136-145); UREA NITROGEN 9 mg/dL (7-18); eGFR NON AFRICAN AMERICAN 85 mL/min (90-120)
[2017-10-30 09:03] VITALS: BP 165/71
[2017-10-30 12:39] VITALS: BP 102/54; BP 184/85
[2017-10-30 13:04] VITALS: Ht 162.6 cm; Wt 59.5 kg
[2017-10-30 16:14] VITALS: BP 187/67
[2017-10-30 20:00] VITALS: BP 189/92
[2017-10-31] VITALS: BP 158/76
[2017-10-31 05:30] LABS: BASOPHILS 0.2 % (0-2); EOSINOPHILS 0.9 % (0-7); HEMATOCRIT 37.4 % (36.0-48.0); HEMOGLOBIN 12.7 g/dL (12-16); IMMATURE GRANULOCYTES 0.6 % (0-5); LYMPHOCYTES 23.4 % (15-50); MCH 29.5 pg (26.0-34.0); MEAN PLATELET VOLUME 9.4 fL (7.4-10.4); MONOCYTES 7.6 % (2-11); NEUTROPHILS 67.3 % (40-80); PLATELET COUNT 417 10x3/uL (130-400); RDW 14.4 % (11.5-14.5); WBC 14.8 10x3/uL (4.8-10.8)
[2017-10-31 05:59] LABS: ALBUMIN 2.8 g/dL (3.4-5.0); ALKALINE PHOSPHATASE 67 U/L (46-116); ALT (SGPT) 35 U/L (10-68); CALC OSMOLALITY 273 mosm/kg (275-300); CALCIUM 8.7 mg/dL (8.5-10.1); CARBON DIOXIDE 28.5 mmol/L (21.0-32.0); CHLORIDE - SERUM 101 mmol/L (98-107); CREATININE - SERUM 0.6 mg/dL (0.6-1.3); GLUCOSE 113 mg/dL (74-106); POTASSIUM - SERUM 3.2 mmol/L (3.5-5.1); PROTEIN - SERUM 6.3 g/dL (6.4-8.2); SODIUM 136 mmol/L (136-145); UREA NITROGEN 15 mg/dL (7-18); eGFR NON AFRICAN AMERICAN > 90 mL/min (90-120)
[2017-10-31 06:17] VITALS: BP 197/92
[2017-10-31 07:00] VITALS: BP 105/64
[2017-10-31 11:00] VITALS: BP 196/87
[2017-10-31 14:57] VITALS: BP 138/79
[2017-10-31 21:53] VITALS: BP 167/95
[2017-11-01 00:49] VITALS: BP 132/97
[2017-11-01 05:05] LABS: BASOPHILS 0.1 % (0-2); HEMATOCRIT 37.3 % (36.0-48.0); HEMOGLOBIN 12.6 g/dL (12-16); IMMATURE GRANULOCYTES 0.4 % (0-5); LYMPHOCYTES 21.7 % (15-50); MCHC 33.8 g/dL (31.0-37.0); MCV 85.9 fL (80.0-100.0); MEAN PLATELET VOLUME 9.4 fL (7.4-10.4); MONOCYTES 5.8 % (2-11); PLATELET COUNT 409 10x3/uL (130-400); RBC 4.34 10x6/uL (4.00-5.40); RDW 14.3 % (11.5-14.5); WBC 13.4 10x3/uL (4.8-10.8)
[2017-11-01 05:16] LABS: ALBUMIN 2.8 g/dL (3.4-5.0); ALKALINE PHOSPHATASE 66 U/L (46-116); ALT (SGPT) 33 U/L (10-68); CALC OSMOLALITY 275 mosm/kg (275-300); CALCIUM 8.5 mg/dL (8.5-10.1); CHLORIDE - SERUM 103 mmol/L (98-107); CREATININE - SERUM 0.6 mg/dL (0.6-1.3); GLUCOSE 111 mg/dL (74-106); POTASSIUM - SERUM 3.1 mmol/L (3.5-5.1); PROTEIN - SERUM 6.2 g/dL (6.4-8.2); SODIUM 137 mmol/L (136-145); UREA NITROGEN 15 mg/dL (7-18); eGFR NON AFRICAN AMERICAN > 90 mL/min (90-120)
[2017-11-01 05:17] VITALS: BP 178/97
[2017-11-01 09:11] VITALS: BP 189/89
[2017-11-01] MEDS ORDERED: PROTONIX40 MG PO (11:36)
[2017-11-01 12:35] VITALS: BP 204/87
== END 2017-11-01 18:35 | DRG 69 ==
LOC: D.ER 20:26 → D.M2 23:32
PROVIDERS: Emergency Medicine; Family Medicine
DX: G45.9 Transient cerebral ischemic attack, unspecified (principal); G93.40 Encephalopathy, unspecified; R65.10 Systemic inflammatory response syndrome (SIRS) of non-infectious origin without acute organ dysfunction; F17.203 Nicotine dependence unspecified, with withdrawal; E87.6 Hypokalemia; I48.0 Paroxysmal atrial fibrillation; Z86.73 Personal history of transient ischemic attack (TIA), and cerebral infarction without residual deficits; I10 Essential (primary) hypertension; D64.9 Anemia, unspecified; G93.89 Other specified disorders of brain; R51 Headache; R40.2363 Coma scale, best motor response, obeys commands, at hospital admission; R40.2133 Coma scale, eyes open, to sound, at hospital admission; R40.2253 Coma scale, best verbal response, oriented, at hospital admission

== ENCOUNTER 2017-11-01 18:35 | Inpatient (IN) | payer MEDICARE, OTHER ==
[~2017-11-01] VITALS: Ht 160 cm; Wt 57.2 kg
--- NOTE | ~2017-11-01 | RHP ---
PATIENT: ALICIA SRIVASTAVA MEDICAL RECORD: [id number] ACCOUNT: [id number] [facility] ADMISSION DATE: 11/01/17 REHABILITATION HISTORY AND PHYSICAL EXAMINATION POST ADMISSION PHYSICIAN EXAMINATION POST-ADMISSION PHYSICAL EXAMINATION AND HISTORY AND PHYSICAL ADMITTING DIAGNOSIS: Acute systemic inflammatory response syndrome. HISTORY OF PRESENT ILLNESS: The patient is a 77-year-old female patient admitted to inpatient rehab with acute systemic inflammatory response. She reported to ED on 10/28/2017 with EMS for nausea and vomiting. No abdominal pain was reported. She could not talk. There were some reports of being confused in the Emergency Room. She was discharged from the hospital earlier that week after workup for syncope and paroxysmal atrial fib. She had labile blood pressure at that time. Her confusion did eventually resolve. She did complain of a mild headache. CT of her head showed no acute intracranial abnormality or significant change from prior examination. Encephalomalacia changes in the right frontal, right parietal, and left parietal occipital lobes from prior infarcts were noted. Low-grade fever was also noted with a temperature of 99.1, hypokalemia required for placement. A bedside swallow eval showed no signs of aspiration. Recommended regular solids with thin liquids and follow up with speech therapy for dietary tolerance and safety swallowing. The patient was monitored off the antibiotics, remains free of fever. She is stable and has been accepted to inpatient rehab. Previously, she was living with her daughter and was moderately independent with ADLs and mobility using a single point cane. Currently, she is moderate to max assist for sit to stand and bed to chair. She has poor balance. She has a left lateral leaning position noted with casted upper extremity support to keep from falling. She has ambulated 20 feet with a rolling walker and 45% assist from PT. COMORBIDITIES: In this patient include generalized weakness, leukocytosis, nausea and vomiting, atrial fib, hypokalemia, tobacco use, nicotine withdrawal, uncontrolled hypertension, normocytic anemia, syncope and collapse, paroxysmal atrial fib, hypomagnesemia, acute mental status changes, pacemaker placement in the past, gastroesophageal reflux disease, and SARS. PAST MEDICAL HISTORY: Significant for previous strokes per CT, cataracts, got a history of atrial fib, syncope, prolapsed mitral valve. PAST SURGICAL HISTORY: Includes appendectomy, hysterectomy, pacemaker placement, and D&C. ALLERGIES: ALL PAIN MEDS except morphine, tetracycline, codeine, hydrocodone, and levofloxacin. CURRENT MEDICATIONS: Include potassium chloride powder 10 Debby daily, Protonix 40 mg daily, metoprolol 100 mg daily, digoxin 0.125 mg daily, polyethylene glycol 17 grams in 8 ounces of water daily, Restoril 30 mg q.h.s. p.r.n., Cozaar 50 mg b.i.d., diltiazem 240 mg daily, clonidine 0.1 mg as needed for systolic blood pressure greater than 170, and Eliquis 2.5 mg b.i.d. HABITS: Does have a history of tobacco use. HISTORY AND PHYSICAL [id number] ALICIA SRIVASTAVA FAMILY HISTORY: Noncontributory. SOCIAL HISTORY: The patient hopes to return back home and get back to her prior level of functioning. REVIEW OF SYSTEMS: GENERAL: Does complain of weakness and fatigue. HEENT: Denies cold, cough, or congestion. CARDIOVASCULAR: Denies any chest pain. PHYSICAL EXAMINATION: VITAL SIGNS: Stable, afebrile. GENERAL: A thin female, in no acute distress, alert upon exam. HEENT: Normocephalic and atraumatic. Mucosa moist. NECK: Supple, with no lymphadenopathy. LUNGS: Decreased breath sounds in both bases. CARDIOVASCULAR: Irregular rate and rhythm. ABDOMEN: Benign. EXTREMITIES: No clubbing, cyanosis or edema. NEUROLOGIC: She does have proximal muscle weakness. LABORATORY DATA: White count is 13.9, H&H 13 and 38 and platelet count is 380. Her sodium is 138, potassium 3.0, BUN and creatinine of 16 and 0.6 and blood sugar is noted to be 110. ASSESSMENT: This is a 77-year-old female patient admitted to rehab with a working diagnosis of debility secondary to systemic inflammatory response syndrome. The patient has potential to make improvement. We instituted the following multidisciplinary therapies including, but not limited to physical, occupational, respiratory, speech, nutritional services, prosthetics and orthotics. Given her complex medical condition and risk for more complications, rehabilitation services cannot be provided at a low level of care such as a [facility] facility. PLAN: 1. Admit to [facility] for intensive inpatient therapy to include the following disciplines: A. Physical therapy to improve gait, all transfer skills and bed mobility to a modified independent level. B. Occupational therapy to improve activities of daily living to a modified independent level. C. Case management to assist with discharge planning and placement options. D. Nutrition to assist with nutritional needs. E. Rehabilitation nursing to assist in monitoring the patient's underlying medical conditions and to assist with any type of bowel or bladder management. 2. The patient's current medications and medical care will be continued. 3. Placed on standard fall precautions. 4. The patient's estimated length of stay is approximately 7-10 days. 5. We will discuss this patient during care team staff meeting this week. TRANSINT:[id number] Voice Confirmation ID: [id number] DOCUMENT ID: [id number] 11/08/17 Edited for isabelle ALTAMIRANO. EVELIA notes whether there has been none or any medical/functional HISTORY AND PHYSICAL [id number] ALICIA SRIVASTAVA change since admission: - No change since preadmission screen. EVELIA attests patient continues to be appropriate for IRF: - Continues to be appropriate. KENAN AUGUSTE MD at 2041 CC: [id number] DICTATION DATE: 11/02/17 0847 PUBLIC SERVICE ADMINISTRATOR: 11/02/17 1008 DIS IN 11/16/[address] [facility] [address] [place] [address]
[~2017-11-01 18:35] MED LIST changes: +PROTONIX40 MG PO
[2017-11-02 00:30] VITALS: BP 174/79; BMI 22.3
[2017-11-02 06:20] LABS: BASOPHILS 0.3 % (0-2); EOSINOPHILS 1.8 % (0-7); HEMATOCRIT 38.5 % (36.0-48.0); HEMOGLOBIN 13.4 g/dL (12-16); IMMATURE GRANULOCYTES 0.4 % (0-5); LYMPHOCYTES 20.9 % (15-50); MCH 29.9 pg (26.0-34.0); MCHC 34.8 g/dL (31.0-37.0); MCV 85.9 fL (80.0-100.0); MEAN PLATELET VOLUME 9.1 fL (7.4-10.4); MONOCYTES 6.1 % (2-11); NEUTROPHILS 70.5 % (40-80); PLATELET COUNT 380 10x3/uL (130-400); RBC 4.48 10x6/uL (4.00-5.40); RDW 14.5 % (11.5-14.5); WBC 13.9 10x3/uL (4.8-10.8)
[2017-11-02 06:40] LABS: CALC OSMOLALITY 277 mosm/kg (275-300); CALCIUM 9.5 mg/dL (8.5-10.1); CHLORIDE - SERUM 101 mmol/L (98-107); CREATININE - SERUM 0.6 mg/dL (0.6-1.3); GLUCOSE 110 mg/dL (74-106); SODIUM 138 mmol/L (136-145); UREA NITROGEN 16 mg/dL (7-18); eGFR NON AFRICAN AMERICAN > 90 mL/min (90-120)
[2017-11-02 08:00] VITALS: BP 148/99
[2017-11-02 13:45] VITALS: Ht 160 cm; Wt 57.2 kg
[2017-11-02 19:00] VITALS: BP 152/68
[2017-11-03 06:32] LABS: BASOPHILS 0.3 % (0-2); EOSINOPHILS 2.2 % (0-7); IMMATURE GRANULOCYTES 0.4 % (0-5); LYMPHOCYTES 20.2 % (15-50); MCH 29.5 pg (26.0-34.0); MCHC 34.2 g/dL (31.0-37.0); MCV 86.4 fL (80.0-100.0); MEAN PLATELET VOLUME 9.6 fL (7.4-10.4); MONOCYTES 5.9 % (2-11); PLATELET COUNT 409 10x3/uL (130-400); RDW 14.4 % (11.5-14.5); WBC 14.8 10x3/uL (4.8-10.8)
[2017-11-03 06:49] LABS: CALC OSMOLALITY 280 mosm/kg (275-300); CALCIUM 9.1 mg/dL (8.5-10.1); CARBON DIOXIDE 26.8 mmol/L (21.0-32.0); CHLORIDE - SERUM 102 mmol/L (98-107); CREATININE - SERUM 0.6 mg/dL (0.6-1.3); GLUCOSE 112 mg/dL (74-106); POTASSIUM - SERUM 3.3 mmol/L (3.5-5.1); SODIUM 139 mmol/L (136-145); UREA NITROGEN 17 mg/dL (7-18); eGFR NON AFRICAN AMERICAN > 90 mL/min (90-120)
[2017-11-03 08:00] VITALS: BP 185/79
[2017-11-03 19:00] VITALS: BP 174/73
[2017-11-04 10:26] VITALS: BP 197/78
[2017-11-04 23:19] VITALS: BP 175/80
[2017-11-05 10:19] VITALS: BP 189/99
[2017-11-05 22:52] VITALS: BP 178/87
[2017-11-06 06:17] LABS: BASOPHILS 0.2 % (0-2); EOSINOPHILS 1.9 % (0-7); HEMATOCRIT 38.2 % (36.0-48.0); HEMOGLOBIN 12.7 g/dL (12-16); IMMATURE GRANULOCYTES 0.5 % (0-5); LYMPHOCYTES 22.9 % (15-50); MCH 28.9 pg (26.0-34.0); MCHC 33.2 g/dL (31.0-37.0); MEAN PLATELET VOLUME 9.1 fL (7.4-10.4); MONOCYTES 7.3 % (2-11); NEUTROPHILS 67.2 % (40-80); PLATELET COUNT 397 10x3/uL (130-400); RBC 4.39 10x6/uL (4.00-5.40); RDW 14.3 % (11.5-14.5); WBC 13.4 10x3/uL (4.8-10.8)
[2017-11-06 06:47] LABS: CALC OSMOLALITY 278 mosm/kg (275-300); CALCIUM 9.1 mg/dL (8.5-10.1); CHLORIDE - SERUM 103 mmol/L (98-107); CREATININE - SERUM 0.6 mg/dL (0.6-1.3); GLUCOSE 117 mg/dL (74-106); POTASSIUM - SERUM 3.5 mmol/L (3.5-5.1); SODIUM 138 mmol/L (136-145); UREA NITROGEN 18 mg/dL (7-18); eGFR NON AFRICAN AMERICAN > 90 mL/min (90-120)
[2017-11-06 07:57] VITALS: BP 176/87
[2017-11-06 19:00] VITALS: BP 172/76
[2017-11-07 08:00] VITALS: BP 153/77
[2017-11-07 19:00] VITALS: BP 189/85
[2017-11-08 07:13] LABS: BASOPHILS 0.3 % (0-2); EOSINOPHILS 1.9 % (0-7); HEMATOCRIT 38.4 % (36.0-48.0); HEMOGLOBIN 12.9 g/dL (12-16); IMMATURE GRANULOCYTES 0.5 % (0-5); LYMPHOCYTES 27.3 % (15-50); MCH 29.4 pg (26.0-34.0); MCHC 33.6 g/dL (31.0-37.0); MCV 87.5 fL (80.0-100.0); MEAN PLATELET VOLUME 9.7 fL (7.4-10.4); MONOCYTES 7.7 % (2-11); NEUTROPHILS 62.3 % (40-80); PLATELET COUNT 388 10x3/uL (130-400); RBC 4.39 10x6/uL (4.00-5.40); RDW 14.4 % (11.5-14.5); WBC 11.7 10x3/uL (4.8-10.8)
[2017-11-08 07:28] LABS: ANION GAP 11.3 mmol/L (8-16); CALCIUM 9.2 mg/dL (8.5-10.1); CARBON DIOXIDE 27.5 mmol/L (21.0-32.0); CREATININE - SERUM 0.8 mg/dL (0.6-1.3); POTASSIUM - SERUM 3.8 mmol/L (3.5-5.1)
[2017-11-08 08:00] VITALS: BP 117/69
[2017-11-08 21:00] VITALS: BP 170/69
[2017-11-09 13:27] VITALS: BP 206/114
[2017-11-09 19:00] VITALS: BP 182/86
[2017-11-10 08:03] VITALS: BP 145/53
[2017-11-10 08:55] LABS: ANION GAP 13.1 mmol/L (8-16); CALCIUM 9.8 mg/dL (8.5-10.1); CARBON DIOXIDE 28.9 mmol/L (21.0-32.0); CREATININE - SERUM 0.9 mg/dL (0.6-1.3)
[2017-11-10 09:01] LABS: BASOPHILS 0.2 % (0-2); EOSINOPHILS 1.6 % (0-7); HEMATOCRIT 39.6 % (36.0-48.0); HEMOGLOBIN 13.2 g/dL (12-16); IMMATURE GRANULOCYTES 0.2 % (0-5); LYMPHOCYTES 30.4 % (15-50); MCH 29.5 pg (26.0-34.0); MCHC 33.3 g/dL (31.0-37.0); MCV 88.6 fL (80.0-100.0); MONOCYTES 5.8 % (2-11); NEUTROPHILS 61.8 % (40-80); PLATELET COUNT 357 10x3/uL (130-400); RBC 4.47 10x6/uL (4.00-5.40); RDW 14.6 % (11.5-14.5); WBC 12.5 10x3/uL (4.8-10.8)
[2017-11-10 19:00] VITALS: BP 167/71
[2017-11-11 07:39] LABS: BASOPHILS 0.2 % (0-2); EOSINOPHILS 1.5 % (0-7); HEMATOCRIT 38.7 % (36.0-48.0); HEMOGLOBIN 12.9 g/dL (12-16); IMMATURE GRANULOCYTES 0.4 % (0-5); LYMPHOCYTES 25.4 % (15-50); MCH 29.3 pg (26.0-34.0); MCHC 33.3 g/dL (31.0-37.0); MEAN PLATELET VOLUME 9.1 fL (7.4-10.4); MONOCYTES 5.6 % (2-11); NEUTROPHILS 66.9 % (40-80); PLATELET COUNT 313 10x3/uL (130-400); RDW 14.4 % (11.5-14.5); WBC 12.1 10x3/uL (4.8-10.8)
[2017-11-11 08:08] LABS: ANION GAP 11.9 mmol/L (8-16); CALCIUM 9.6 mg/dL (8.5-10.1); CARBON DIOXIDE 28.9 mmol/L (21.0-32.0); CREATININE - SERUM 0.8 mg/dL (0.6-1.3); POTASSIUM - SERUM 3.8 mmol/L (3.5-5.1)
[2017-11-11 08:22] VITALS: BP 176/90
[2017-11-11 20:30] VITALS: BP 190/72
[2017-11-12 00:16] LABS: APPEARANCE CLEAR (CLEAR); BILIRUBIN NEGATIVE (NEGATIVE); COLOR YELLOW (YELLOW); GLUCOSE 100 mg/dL (NEGATIVE); KETONE NEGATIVE (NEGATIVE); NITRITE NEGATIVE (NEGATIVE); PROTEIN NEGATIVE (NEGATIVE); UROBILINOGEN NORMAL (NORMAL)
[2017-11-12 00:49] VITALS: BP 170/72
[2017-11-12 09:09] VITALS: BP 180/69
[2017-11-12 20:30] VITALS: BP 140/71
[2017-11-13 08:00] VITALS: BP 185/112
[2017-11-13 19:00] VITALS: BP 162/62
[2017-11-14 08:42] VITALS: BP 185/67
[2017-11-14 19:00] VITALS: BP 149/81
[2017-11-15 07:30] LABS: BASOPHILS 0.3 % (0-2); EOSINOPHILS 2.2 % (0-7); HEMATOCRIT 39.2 % (36.0-48.0); HEMOGLOBIN 13.2 g/dL (12-16); IMMATURE GRANULOCYTES 0.3 % (0-5); LYMPHOCYTES 21.8 % (15-50); MCH 29.5 pg (26.0-34.0); MCHC 33.7 g/dL (31.0-37.0); MCV 87.5 fL (80.0-100.0); MEAN PLATELET VOLUME 9.7 fL (7.4-10.4); MONOCYTES 7.1 % (2-11); NEUTROPHILS 68.3 % (40-80); PLATELET COUNT 312 10x3/uL (130-400); RBC 4.48 10x6/uL (4.00-5.40); RDW 14.1 % (11.5-14.5); WBC 11.7 10x3/uL (4.8-10.8)
[2017-11-15 07:50] LABS: CALC OSMOLALITY 278 mosm/kg (275-300); CALCIUM 9.9 mg/dL (8.5-10.1); CARBON DIOXIDE 30.4 mmol/L (21.0-32.0); CHLORIDE - SERUM 100 mmol/L (98-107); CREATININE - SERUM 0.7 mg/dL (0.6-1.3); GLUCOSE 121 mg/dL (74-106); POTASSIUM - SERUM 3.6 mmol/L (3.5-5.1); SODIUM 138 mmol/L (136-145); UREA NITROGEN 17 mg/dL (7-18); eGFR NON AFRICAN AMERICAN 85 mL/min (90-120)
[2017-11-15 08:00] VITALS: BP 161/79
[2017-11-15 19:00] VITALS: BP 116/68
[2017-11-16 08:00] VITALS: BP 146/74
[2017-11-16] MEDS ORDERED: DIOVAN80 MG PO (08:17)
== END 2017-11-16 11:49 | DRG 948 ==
LOC: D.REHAB 18:35
PROVIDERS: Emergency Medicine
DX: R53.81 Other malaise (principal); R65.10 Systemic inflammatory response syndrome (SIRS) of non-infectious origin without acute organ dysfunction; F17.203 Nicotine dependence unspecified, with withdrawal; R53.1 Weakness; D72.829 Elevated white blood cell count, unspecified; R11.2 Nausea with vomiting, unspecified; E87.6 Hypokalemia; I10 Essential (primary) hypertension; D64.9 Anemia, unspecified; R55 Syncope and collapse; I48.0 Paroxysmal atrial fibrillation; E83.42 Hypomagnesemia; R41.82 Altered mental status, unspecified; K21.9 Gastro-esophageal reflux disease without esophagitis; Z95.0 Presence of cardiac pacemaker

== ENCOUNTER 2018-05-05 23:19 | Emergency (ER) | payer MEDICARE, OTHER ==
[~2018-05-05] VITALS: Ht 160 cm; Wt 56.8 kg
[~2018-05-05 23:19] MED LIST changes: +DIOVAN80 MG PO
[2018-05-05 23:21] VITALS: Ht 160 cm; Wt 56.8 kg
[2018-05-06 03:23] VITALS: BP 223/84
== END 2018-05-06 02:39 ==
LOC: D.ER 23:19
DX: S05.11XA Contusion of eyeball and orbital tissues, right eye, initial encounter (principal); W05.0XXA Fall from non-moving wheelchair, initial encounter; Y93.89 Activity, other specified; Y92.129 Unspecified place in nursing home as the place of occurrence of the external cause; S01.111A Laceration without foreign body of right eyelid and periocular area, initial encounter; S05.31XA Ocular laceration without prolapse or loss of intraocular tissue, right eye, initial encounter

== ENCOUNTER 2018-06-30 23:16 | Emergency (ER) | payer MEDICARE, OTHER ==
[~2018-06-30] VITALS: Ht 160 cm; Wt 72.7 kg
[2018-06-30 23:19] VITALS: Ht 160 cm; Wt 72.7 kg
[2018-06-30 23:53] LABS: BASOPHILS 0.3 % (0-2); EOSINOPHILS 1.4 % (0-7); HEMATOCRIT 37.9 % (36.0-48.0); HEMOGLOBIN 12.5 g/dL (12-16); IMMATURE GRANULOCYTES 0.3 % (0-5); LYMPHOCYTES 28.3 % (15-50); MCH 26.1 pg (26.0-34.0); MCV 79.1 fL (80.0-100.0); MONOCYTES 7.1 % (2-11); NEUTROPHILS 62.6 % (40-80); PLATELET COUNT 295 10x3/uL (130-400); RBC 4.79 10x6/uL (4.00-5.40); RDW 14.2 % (11.5-14.5); WBC 11.8 10x3/uL (4.8-10.8)
[2018-07-01 00:03] LABS: APTT 29.9 SECONDS (22.8-39.4); INR 1.31 (0.85-1.17); PROTIME 15.7 SECONDS (11.6-15.0)
[2018-07-01 00:19] LABS: ALBUMIN 3.2 g/dL (3.4-5.0); ALKALINE PHOSPHATASE 110 U/L (46-116); ALT (SGPT) 18 U/L (10-68); CALC OSMOLALITY 278 mosm/kg (275-300); CALCIUM 9.2 mg/dL (8.5-10.1); CARBON DIOXIDE 24.1 mmol/L (21.0-32.0); CHLORIDE - SERUM 98 mmol/L (98-107); CKMB 0.8 U/L (0.0-3.6); CREATINE KINASE 14 UL (21-215); DIGOXIN 0.48 ng/mL (0.90-2.00); GLUCOSE 162 mg/dL (74-106); MAGNESIUM - SERUM 1.8 mg/dL (1.8-2.4); POTASSIUM - SERUM 2.8 mmol/L (3.5-5.1); PROTEIN - SERUM 6.9 g/dL (6.4-8.2); SODIUM 136 mmol/L (136-145); TROPONIN-I 0.018 ng/mL (0.000-0.060); UREA NITROGEN 20 mg/dL (7-18); eGFR NON AFRICAN AMERICAN 57 mL/min (90-120)
[2018-07-01] MEDS ORDERED: K-TAB10 MEQ PO (02:57)
[2018-07-01 04:11] VITALS: BP 176/80
== END 2018-07-01 04:13 ==
LOC: D.ER 23:16
PROVIDERS: Emergency Medicine
DX: E87.6 Hypokalemia (principal); Z95.0 Presence of cardiac pacemaker; F17.200 Nicotine dependence, unspecified, uncomplicated

== ENCOUNTER → 2020-07-28 21:25 | Outpatient (CLI) | payer MEDICARE, MEDICAID ==
[2018-06-30 23:19] VITALS: BMI 28.4
[~2020-07-28 21:25] MED LIST changes: +K-TAB10 MEQ PO
[2020-07-28 22:02] LABS: NITRITE NEGATIVE (NEGATIVE)
[2020-07-28 22:03] LABS: BILIRUBIN NEGATIVE (NEGATIVE); KETONE NEGATIVE (NEGATIVE); UROBILINOGEN NORMAL mg/dL (< 2)
== END | disposition home or self-care (01) ==
LOC: D.LABREF 21:25
PROVIDERS: ATTEND Family Medicine
DX: N39.0 Urinary tract infection, site not specified (principal)

== ENCOUNTER → 2020-08-17 18:29 | Outpatient (CLI) | payer MEDICARE, MEDICAID ==
[2020-08-17 18:36] LABS: BASOPHILS 0.2 % (0-2); EOSINOPHILS 0 % (0-7); HEMATOCRIT 40.7 % (36.0-48.0); HEMOGLOBIN 13.2 g/dL (12-16); IMMATURE GRANULOCYTES 0.4 % (0-5); LYMPHOCYTE ABS# 1.52 10x3/uL (1.18-3.74); LYMPHOCYTES 8.9 % (15-50); MCH 29.4 pg (26.0-34.0); MCHC 32.4 g/dL (31.0-37.0); MCV 90.6 fL (80.0-100.0); NEUTROPHIL ABS# 14.26 10x3/uL (1.56-6.13); NEUTROPHILS 83.5 % (40-80); PLATELET COUNT 307 10x3/uL (130-400); RBC 4.49 10x6/uL (4.00-5.40); RDW 15.1 % (11.5-14.5); WBC 17.1 10x3/uL (4.8-10.8)
[2020-08-17 18:37] LABS: BILIRUBIN NEGATIVE (NEGATIVE); KETONE NEGATIVE (NEGATIVE); NITRITE NEGATIVE (NEGATIVE); UROBILINOGEN NORMAL mg/dL (< 2)
[2020-08-17 18:51] LABS: ALBUMIN 3.8 g/dL (3.4-5.0); ALKALINE PHOSPHATASE 98 U/L (30-120); ALT (SGPT) 32 U/L (10-68); BILIRUBIN - TOTAL 0.73 mg/dL (0.2-1.3); CALC OSMOLALITY 292 mosm/kg (275-300); CALCIUM 9.8 mg/dL (8.5-10.1); CARBON DIOXIDE 33.4 mmol/L (21.0-32.0); CHLORIDE - SERUM 104 mmol/L (98-107); CREATININE - SERUM 0.7 mg/dL (0.6-1.3); GLUCOSE 115 mg/dL (74-106); POTASSIUM - SERUM 3.6 mmol/L (3.5-5.1); PROTEIN - SERUM 7.1 g/dL (6.4-8.2); SODIUM 145 mmol/L (136-145); UREA NITROGEN 20 mg/dL (7-18); eGFR NON AFRICAN AMERICAN 85 mL/min (90-120)
== END | disposition home or self-care (01) ==
LOC: D.LABREF 18:29
PROVIDERS: Family Medicine
DX: R41.82 Altered mental status, unspecified (principal)

== ENCOUNTER → 2020-08-20 12:31 | Outpatient (CLI) | payer MEDICARE, OTHER, MEDICAID ==
[2018-06-30 23:19] VITALS: BMI 28.4
[2020-08-20 12:57] LABS: BASOPHILS 0.3 % (0-2); EOSINOPHILS 2.5 % (0-7); HEMATOCRIT 41.3 % (36.0-48.0); HEMOGLOBIN 13.6 g/dL (12-16); IMMATURE GRANULOCYTES 0.3 % (0-5); LYMPHOCYTE ABS# 1.49 10x3/uL (1.18-3.74); LYMPHOCYTES 16.7 % (15-50); MCH 29.3 pg (26.0-34.0); MCHC 32.9 g/dL (31.0-37.0); MEAN PLATELET VOLUME 10.7 fL (7.4-10.4); MONOCYTES 9.2 % (2-11); NEUTROPHIL ABS# 6.33 10x3/uL (1.56-6.13); PLATELET COUNT 357 10x3/uL (130-400); RBC 4.64 10x6/uL (4.00-5.40); RDW 14.8 % (11.5-14.5); WBC 8.9 10x3/uL (4.8-10.8)
== END | disposition home or self-care (01) ==
LOC: D.LABREF 12:31
PROVIDERS: ATTEND Family Medicine
DX: I10 Essential (primary) hypertension (principal); R41.82 Altered mental status, unspecified

== ENCOUNTER → 2020-08-21 16:31 | Outpatient (CLI) | payer MEDICARE, OTHER, MEDICAID ==
[2018-06-30 23:19] VITALS: BMI 28.4
[2020-08-21 16:58] LABS: ALKALINE PHOSPHATASE 83 U/L (30-120); ALT (SGPT) 26 U/L (10-68); BILIRUBIN - TOTAL 0.19 mg/dL (0.2-1.3); CALC OSMOLALITY 281 mosm/kg (275-300); CALCIUM 9.2 mg/dL (8.5-10.1); CARBON DIOXIDE 30.3 mmol/L (21.0-32.0); CHLORIDE - SERUM 103 mmol/L (98-107); CREATININE - SERUM 0.7 mg/dL (0.6-1.3); GLUCOSE 90 mg/dL (74-106); POTASSIUM - SERUM 3.7 mmol/L (3.5-5.1); SODIUM 140 mmol/L (136-145); UREA NITROGEN 21 mg/dL (7-18); eGFR NON AFRICAN AMERICAN 85 mL/min (90-120)
== END | disposition home or self-care (01) ==
LOC: D.LABREF 16:31
PROVIDERS: ATTEND Family Medicine
DX: I10 Essential (primary) hypertension (principal)

== ENCOUNTER → 2020-09-15 18:34 | Outpatient (CLI) | payer MEDICARE, OTHER, MEDICAID ==
[2018-06-30 23:19] VITALS: BMI 28.4
[2020-09-15 19:27] LABS: BASOPHILS 0.6 % (0-2); EOSINOPHILS 2.2 % (0-7); HEMATOCRIT 43.5 % (36.0-48.0); HEMOGLOBIN 14.1 g/dL (12-16); IMMATURE GRANULOCYTES 0.4 % (0-5); LYMPHOCYTE ABS# 3.19 10x3/uL (1.18-3.74); LYMPHOCYTES 40.8 % (15-50); MCH 28.8 pg (26.0-34.0); MCHC 32.4 g/dL (31.0-37.0); MEAN PLATELET VOLUME 11.1 fL (7.4-10.4); MONOCYTES 9.5 % (2-11); NEUTROPHIL ABS# 3.64 10x3/uL (1.56-6.13); NEUTROPHILS 46.5 % (40-80); PLATELET COUNT 253 10x3/uL (130-400); RBC 4.89 10x6/uL (4.00-5.40); WBC 7.8 10x3/uL (4.8-10.8)
[2020-09-15 19:47] LABS: ALBUMIN 3.3 g/dL (3.4-5.0); ANION GAP 12.4 mmol/L (8-16); BILIRUBIN - TOTAL 0.12 mg/dL (0.2-1.3); CALCIUM 9.6 mg/dL (8.5-10.1); CARBON DIOXIDE 30.9 mmol/L (21.0-32.0); CREATININE - SERUM 0.9 mg/dL (0.6-1.3); DIGOXIN 0.93 ng/mL (0.90-2.00); POTASSIUM - SERUM 4.3 mmol/L (3.5-5.1); PROTEIN - SERUM 5.9 g/dL (6.4-8.2); THYROID STIMULATING HORMONE 1.46 uIU/mL (0.36-3.74)
== END | disposition home or self-care (01) ==
LOC: D.LABREF 18:34
PROVIDERS: ATTEND Family Medicine
DX: I10 Essential (primary) hypertension (principal); K27.9 Peptic ulcer, site unspecified, unspecified as acute or chronic, without hemorrhage or perforation; I49.9 Cardiac arrhythmia, unspecified